=== PATIENT | male | born 1970 | race African-American/Black ===

== ENCOUNTER 2017-03-08 20:45 | Emergency (ER) | payer SELFPAY ==
[~2017-03-08] VITALS: Ht 177.8 cm; Wt 85.5 kg
[2017-03-08] MEDS ORDERED: SODIUM CHLORIDE 0.9% 1,000ML IVBOLUS ONE ×2 (21:00→23:00)
[2017-03-08] MEDS ORDERED: SODIUM CHLORIDE FLUSH 10ML SYR IVF ONE (21:00)
[2017-03-08] MEDS ORDERED: ONDANSETRON 2MG/ML, 2ML IVPush ONE (21:00)
[2017-03-08] MEDS ORDERED: ACETAMINOPHEN 500 MG TABLET PO ONE (21:00)
[2017-03-08] MEDS ORDERED: IBUPROFEN 200 MG TABLET ONE (21:04)
[2017-03-08] MEDS ORDERED: ACETAMINOPHEN 500 MG TABLET ONE (21:05)
[2017-03-08] MEDS ORDERED: ONDANSETRON 2MG/ML, 2ML ONE (21:21)
[2017-03-08 21:30] LABS: HEMATOCRIT 43.2 % (39.2-51.8); HEMOGLOBIN 14.5 g/dL (13.7-18.0); WHITE BLOOD COUNT 6.3 x10^3/uL (3.4-10)
[2017-03-08] MEDS ORDERED: IBUPROFEN 200 MG TABLET PO ONE (21:30)
[2017-03-08] MEDS ORDERED: PLEASE ENTER ALLERGIES MC SCH ×2 (21:30)
[2017-03-08 21:32] LABS: RAPID INFLUENZA A Negative (Negative); RAPID INFLUENZA B Negative (Negative)
[2017-03-08] MEDS ORDERED: HYDR-3240 PO (21:35)
[2017-03-08 21:42] LABS: ASPARTATE AMINO TRANSFERASE 16 U/L (15-37); BLOOD UREA NITROGEN 13 mg/dL (7-18)
[2017-03-08 22:20] VITALS: BP 118/63
== END 2017-03-08 23:58 ==
LOC: ED 21:42
DX: B34.9 Viral infection, unspecified (principal); E86.0 Dehydration; F17.200 Nicotine dependence, unspecified, uncomplicated
CPT/HCPCS: 36415; 71020; 80053; 85025; 87400; 93005; 96361; 96374; 99285; J2405; J7030

== ENCOUNTER 2017-05-09 02:40 | Emergency (ER) | payer MEDICAID, OTHER ==
[~2017-05-09] VITALS: Ht 177.8 cm; Wt 85.5 kg
[~2017-05-09 02:40] MED LIST: HYDR-3240 PO
[2017-05-09 02:43] VITALS: BP 145/93
== END 2017-05-09 03:12 | disposition home or self-care (01) ==
LOC: ED 02:51
DX: K02.9 Dental caries, unspecified (principal)
CPT/HCPCS: 99283

== ENCOUNTER 2017-11-27 00:30 | Emergency (ER) | payer MEDICAID ==
[~2017-11-27] VITALS: Ht 177.8 cm; Wt 87.6 kg
[2017-11-27] MEDS ORDERED: ACETAMINOPHEN 500 MG TABLET ONE (00:55)
[2017-11-27] MEDS ORDERED: SODIUM CHLORIDE 0.9% 1,000ML IVBOLUS ONE (01:00)
[2017-11-27] MEDS ORDERED: ACETAMINOPHEN 500 MG TABLET PO ONE (01:00)
[2017-11-27 01:23] LABS: ALANINE AMINOTRANSFERASE 29 U/L (12-78); ANION GAP 9 mmol/L (5-15); BASOPHILS # (AUTO) 0.01 x10^3/uL (0-0.1); BASOPHILS % (AUTO) 0 % (0-1); CALCIUM 9.1 mg/dL (8.5-10.1); CHLORIDE 102 mmol/L (98-107); CREATININE 1.13 mg/dL (0.7-1.3); EOSINOPHILS # (AUTO) 0.03 x10^3/uL (0-0.4); EOSINOPHILS % (AUTO) 0 % (1-7); LYMPHOCYTES % (AUTO) 13 % (22-44); MD NO; MEAN CORPUSCULAR HEMOGLOBIN 31.7 pg (27.5-34.5); MEAN CORPUSCULAR HGB CONC 34.8 g/dL (33.2-36.2); MEAN PLATELET VOLUME 7.5 fL (7.4-10.4); MONOCYTES # (AUTO) 0.46 x10^3/uL (0.2-0.8); MONOCYTES % (AUTO) 6 % (2-9); NEUTROPHILS # (AUTO) 6.73 x10^3/uL (1.8-6.8); NEUTROPHILS % (AUTO) 81 % (42-75); PLATELET COUNT 231 x10^3/uL (130-400); RED BLOOD COUNT 4.86 x10^6/uL (4.38-5.82); RED CELL DISTRIBUTION WIDTH 13.7 % (9.4-14.8)
[2017-11-27 01:24] LABS: ALBUMIN 3.9 g/dL (3.4-5.0)
[2017-11-27 01:26] LABS: ALKALINE PHOSPHATASE 98 U/L (45-117); BILIRUBIN,TOTAL 0.9 mg/dL (0.2-1.0); TOTAL PROTEIN 7.5 g/dL (6.4-8.2)
[2017-11-27 01:58] VITALS: BP 143/89
== END 2017-11-27 02:30 | disposition home or self-care (01) ==
LOC: ED 01:30
DX: J15.8 Pneumonia due to other specified bacteria (principal); B96.89 Other specified bacterial agents as the cause of diseases classified elsewhere; F17.200 Nicotine dependence, unspecified, uncomplicated
CPT/HCPCS: 36415; 71046; 80053; 85025; 93005; 99285

== ENCOUNTER 2018-01-25 13:24 | Observation (INO) | payer MEDICAID ==
[~2018-01-25] VITALS: Ht 180.3 cm; Wt 90.8 kg
[2018-01-25] MEDS ORDERED: KETOROLAC 30 MG/1 ML ONE (13:44)
[2018-01-25] MEDS ORDERED: KETOROLAC 30 MG/1 ML IVPush ONE (14:00)
[2018-01-25] MEDS ORDERED: OXYcodone/APAP 5/325MG TABLET ONE (14:52)
[2018-01-25] MEDS ORDERED: METHOCARBAMOL 750 MG TABLET ONE (14:52)
[2018-01-25] MEDS ORDERED: METHOCARBAMOL 750 MG TABLET PO ONE (15:00)
[2018-01-25] MEDS ORDERED: OXYcodone/APAP 5/325MG TABLET PO ONE (15:00)
[2018-01-25] MEDS ORDERED: MORPHINE SULFATE 4 MG/ML, 1ML ONE (15:06)
[2018-01-25] MEDS ORDERED: ONDANSETRON 2MG/ML, 2ML ONE (15:06)
[2018-01-25 17:30] LABS: BASOPHILS # (AUTO) 0.05 x10^3/uL (0-0.1); BASOPHILS % (AUTO) 1 % (0-1); EOSINOPHILS # (AUTO) 0.19 x10^3/uL (0-0.4); EOSINOPHILS % (AUTO) 4 % (1-7); LYMPHOCYTES # (AUTO) 2.66 x10^3/uL (1-3.4); LYMPHOCYTES % (AUTO) 49 % (22-44); MD NO; MEAN CORPUSCULAR HEMOGLOBIN 32.2 pg (27.5-34.5); MEAN CORPUSCULAR HGB CONC 34.4 g/dL (33.2-36.2); MEAN CORPUSCULAR VOLUME 93.8 fL (81-97); MEAN PLATELET VOLUME 7.7 fL (7.4-10.4); MONOCYTES # (AUTO) 0.47 x10^3/uL (0.2-0.8); MONOCYTES % (AUTO) 9 % (2-9); NEUTROPHILS # (AUTO) 2.07 x10^3/uL (1.8-6.8); NEUTROPHILS % (AUTO) 38 % (42-75); PLATELET COUNT 238 x10^3/uL (130-400); RED BLOOD COUNT 4.52 x10^6/uL (4.38-5.82); RED CELL DISTRIBUTION WIDTH 14.4 % (9.4-14.8)
[2018-01-25] MEDS ORDERED: POLYETHYLENE GLYCOL 17 GM PACKET PO PRN (17:30)
[2018-01-25] MEDS ORDERED: LABETALOL 5MG/ML, 20ML IVPush PRN (17:30)
[2018-01-25] MEDS ORDERED: ONDANSETRON 2MG/ML, 2ML IVPush PRN (17:30)
[2018-01-25] MEDS ORDERED: ONDANSETRON ODT 4 MG PO PRN (17:30)
[2018-01-25 17:38] LABS: ALBUMIN 3.4 g/dL (3.4-5.0); ANION GAP 7 mmol/L (5-15); CALCIUM 8.3 mg/dL (8.5-10.1); CHLORIDE 107 mmol/L (98-107)
[2018-01-25 17:40] LABS: ALANINE AMINOTRANSFERASE 26 U/L (12-78); ALKALINE PHOSPHATASE 86 U/L (45-117); BILIRUBIN,TOTAL 0.2 mg/dL (0.2-1.0); TOTAL PROTEIN 6.5 g/dL (6.4-8.2)
[2018-01-25] MEDS: SODIUM CHLORIDE 0.9% 1,000 ML IV SCH (18:03)
[2018-01-25 18:11] VITALS: BP 130/86
[2018-01-25] MEDS ORDERED: METHOCARBAMOL 500 MG TABLET PO PRN (19:30)
[2018-01-25] MEDS: HYDROcodone/APAP 10/325 MG TABLET PO PRN (19:50)
[2018-01-25] MEDS: NICOTINE 21 MG/24 HR PATCH.TD24 TD SCH (19:50)
[2018-01-26] MEDS: SODIUM CHLORIDE 0.9% 1,000 ML IV SCH ×3 (00:25→23:03)
[2018-01-26 01:23] VITALS: BP 114/67
[2018-01-26] MEDS: HYDROcodone/APAP 10/325 MG TABLET PO PRN ×3 (01:47→20:21)
[2018-01-26 06:00] LABS: BASOPHILS # (AUTO) 0.05 x10^3/uL (0-0.1); BASOPHILS % (AUTO) 1 % (0-1); EOSINOPHILS # (AUTO) 0.23 x10^3/uL (0-0.4); EOSINOPHILS % (AUTO) 4 % (1-7); LYMPHOCYTES # (AUTO) 2.74 x10^3/uL (1-3.4); LYMPHOCYTES % (AUTO) 45 % (22-44); MD NO; MEAN CORPUSCULAR HEMOGLOBIN 31.8 pg (27.5-34.5); MEAN CORPUSCULAR HGB CONC 34.2 g/dL (33.2-36.2); MEAN CORPUSCULAR VOLUME 92.9 fL (81-97); MEAN PLATELET VOLUME 7.9 fL (7.4-10.4); MONOCYTES # (AUTO) 0.48 x10^3/uL (0.2-0.8); MONOCYTES % (AUTO) 8 % (2-9); NEUTROPHILS # (AUTO) 2.55 x10^3/uL (1.8-6.8); NEUTROPHILS % (AUTO) 42 % (42-75); PLATELET COUNT 221 x10^3/uL (130-400); RED BLOOD COUNT 4.53 x10^6/uL (4.38-5.82); RED CELL DISTRIBUTION WIDTH 14.4 % (9.4-14.8)
[2018-01-26 06:10] LABS: ALBUMIN 3.3 g/dL (3.4-5.0); ANION GAP 6 mmol/L (5-15); CALCIUM 8.4 mg/dL (8.5-10.1); CHLORIDE 109 mmol/L (98-107)
[2018-01-26 06:15] LABS: ALANINE AMINOTRANSFERASE 24 U/L (12-78); ALKALINE PHOSPHATASE 79 U/L (45-117); BILIRUBIN,TOTAL 0.2 mg/dL (0.2-1.0); CREATININE 0.87 mg/dL (0.7-1.3); TOTAL PROTEIN 6.2 g/dL (6.4-8.2)
[2018-01-26 07:09] VITALS: BP 137/76
[2018-01-26] MEDS: SENNA/DOCUSATE TABLET PO SCH (09:00)
[2018-01-26] MEDS ORDERED: MIDAZOLAM 1 MG/ML, 5ML ONE (11:51)
[2018-01-26] MEDS ORDERED: FENTANYL PF 100 MCG/2ML ONE (11:51)
[2018-01-26] MEDS ORDERED: methylPREDNISolone SOD SUCC 125 MG/2 ML IVPush SCH (13:00)
[2018-01-26] MEDS ORDERED: GADOBUTROL 10 MMOL/10 ML PFS ONE (14:00)
[2018-01-26 15:05] VITALS: BP 121/79
[2018-01-26] MEDS ORDERED: MORPHINE SULFATE 4 MG/ML, 1ML IVPush PRN (15:30)
[2018-01-26] MEDS ORDERED: ENOXAPARIN 40 MG/0.4 ML SQ SCH (18:00)
[2018-01-26 18:23] LABS: AMPHETAMINE SCREEN, URINE Negative (Negative); BARBITURATE SCREEN, URINE Negative (Negative); BENZODIAZEPINE SCREEN, URINE Positive (Negative); CANNABINOID SCREEN, URINE Positive (Negative); COCAINE SCREEN, URINE Negative (Negative); METHADONE SCREEN, URINE Negative (Negative); OPIATE SCREEN, URINE Positive (Negative)
[2018-01-26 19:07] VITALS: BP 149/94
[2018-01-26] MEDS: NICOTINE 21 MG/24 HR PATCH.TD24 TD SCH (20:21)
[2018-01-27] MEDS: METHOCARBAMOL 500 MG TABLET PO PRN ×2 (00:22→06:38)
[2018-01-27] MEDS: HYDROcodone/APAP 10/325 MG TABLET PO PRN ×3 (00:22→12:02)
[2018-01-27 00:45] VITALS: BP 147/83
[2018-01-27] MEDS: SODIUM CHLORIDE 0.9% 1,000 ML IV SCH (06:38)
[2018-01-27 06:42] VITALS: BP 150/85
[2018-01-27 07:34] LABS: ALBUMIN 3.7 g/dL (3.4-5.0); ANION GAP 8 mmol/L (5-15); CALCIUM 8.9 mg/dL (8.5-10.1); CHLORIDE 109 mmol/L (98-107)
[2018-01-27 07:37] LABS: ALANINE AMINOTRANSFERASE 27 U/L (12-78); ALKALINE PHOSPHATASE 78 U/L (45-117); BILIRUBIN,TOTAL 0.3 mg/dL (0.2-1.0); CREATININE 0.95 mg/dL (0.7-1.3); TOTAL PROTEIN 7.1 g/dL (6.4-8.2)
[2018-01-27] MEDS: SENNA/DOCUSATE TABLET PO SCH (09:00)
[2018-01-27] MEDS ORDERED: PRED10TA PO (11:47)
[2018-01-27] MEDS ORDERED: METH500T7 PO (11:47)
[2018-01-27 12:24] VITALS: BP 157/81
== END 2018-01-27 13:40 | disposition home or self-care (01) ==
LOC: ED 16:42 → EDIP 16:43 → ED 16:43 → INTOOBSV 16:43 → 3NE 17:26 → DCLOUNGE 01-27 13:30
PROVIDERS: ADMIT Internal Medicine; ATTEND Internal Medicine
DX: M51.24 Other intervertebral disc displacement, thoracic region (principal); G89.21 Chronic pain due to trauma; N50.82 Scrotal pain; N50.3 Cyst of epididymis; F12.10 Cannabis abuse, uncomplicated; F17.210 Nicotine dependence, cigarettes, uncomplicated
CPT/HCPCS: 36415; 72157; 72158; 73610; 73630; 76870; 80053; 80307; 83735; 84100; 85025; 96372; 96374; 97163; 99285; A9585; G0378; G8978; G8979; G8980; J1650; J1885; J2250; J3010; J7030; J7512

== ENCOUNTER 2018-03-24 07:08 | Emergency (ER) | payer MEDICAID, OTHER ==
[~2018-03-24] VITALS: Ht 177.8 cm; Wt 86.0 kg
[~2018-03-24 07:08] MED LIST changes: +METH500T7 PO; +PRED10TA PO
[2018-03-24] MEDS ORDERED: LEVETIRACETAM 500 MG in SODIUM CHLORIDE 0.9% 100 ML IV ONE (07:30)
[2018-03-24] MEDS ORDERED: SODIUM CHLORIDE FLUSH 10ML SYR IVF ONE (07:30)
[2018-03-24 07:53] LABS: BASOPHILS # (AUTO) 0.04 x10^3/uL (0-0.1); BASOPHILS % (AUTO) 1 % (0-1); EOSINOPHILS # (AUTO) 0.14 x10^3/uL (0-0.4); EOSINOPHILS % (AUTO) 3 % (1-7); LYMPHOCYTES # (AUTO) 2.13 x10^3/uL (1-3.4); LYMPHOCYTES % (AUTO) 41 % (22-44); MD NO; MEAN CORPUSCULAR HEMOGLOBIN 31.6 pg (27.5-34.5); MEAN CORPUSCULAR HGB CONC 34.3 g/dL (33.2-36.2); MEAN CORPUSCULAR VOLUME 92.2 fL (81-97); MEAN PLATELET VOLUME 7.6 fL (7.4-10.4); MONOCYTES # (AUTO) 0.51 x10^3/uL (0.2-0.8); MONOCYTES % (AUTO) 10 % (2-9); NEUTROPHILS # (AUTO) 2.37 x10^3/uL (1.8-6.8); NEUTROPHILS % (AUTO) 46 % (42-75); PLATELET COUNT 255 x10^3/uL (130-400); RED BLOOD COUNT 4.83 x10^6/uL (4.38-5.82); RED CELL DISTRIBUTION WIDTH 13.7 % (9.4-14.8)
[2018-03-24 07:58] LABS: ALANINE AMINOTRANSFERASE 31 U/L (12-78); ALBUMIN 3.8 g/dL (3.4-5.0); ANION GAP 6 mmol/L (5-15); CHLORIDE 108 mmol/L (98-107)
[2018-03-24 08:00] LABS: ALKALINE PHOSPHATASE 86 U/L (45-117); BILIRUBIN,TOTAL 0.6 mg/dL (0.2-1.0); CREATININE 1.09 mg/dL (0.7-1.3); TOTAL PROTEIN 7.2 g/dL (6.4-8.2)
[2018-03-24 09:09] VITALS: BP 121/82
== END 2018-03-24 09:30 | disposition home or self-care (01) ==
LOC: ED 08:36
DX: G40.419 Other generalized epilepsy and epileptic syndromes, intractable, without status epilepticus (principal); Z59.0 Homelessness
CPT/HCPCS: 36415; 70450; 80053; 85025; 93005; 96365; 99285; J1953

== ENCOUNTER 2018-03-24 15:18 | Emergency (ER) | payer SELFPAY ==
[~2018-03-24] VITALS: Ht 177.8 cm; Wt 86.0 kg
[2018-03-24 16:16] LABS: BASOPHILS # (AUTO) 0.03 x10^3/uL (0-0.1); BASOPHILS % (AUTO) 1 % (0-1); EOSINOPHILS # (AUTO) 0.16 x10^3/uL (0-0.4); EOSINOPHILS % (AUTO) 3 % (1-7); LYMPHOCYTES # (AUTO) 2.18 x10^3/uL (1-3.4); LYMPHOCYTES % (AUTO) 41 % (22-44); MD NO; MEAN CORPUSCULAR HEMOGLOBIN 32.1 pg (27.5-34.5); MEAN CORPUSCULAR HGB CONC 34.6 g/dL (33.2-36.2); MEAN CORPUSCULAR VOLUME 92.5 fL (81-97); MEAN PLATELET VOLUME 7.4 fL (7.4-10.4); MONOCYTES # (AUTO) 0.44 x10^3/uL (0.2-0.8); MONOCYTES % (AUTO) 8 % (2-9); NEUTROPHILS # (AUTO) 2.57 x10^3/uL (1.8-6.8); NEUTROPHILS % (AUTO) 48 % (42-75); PLATELET COUNT 258 x10^3/uL (130-400); RED BLOOD COUNT 4.67 x10^6/uL (4.38-5.82); RED CELL DISTRIBUTION WIDTH 13.9 % (9.4-14.8)
[2018-03-24 16:28] LABS: ALBUMIN 3.5 g/dL (3.4-5.0); ANION GAP 8 mmol/L (5-15); CALCIUM 8.8 mg/dL (8.5-10.1); CHLORIDE 109 mmol/L (98-107)
[2018-03-24 16:34] LABS: ALANINE AMINOTRANSFERASE 30 U/L (12-78); ALKALINE PHOSPHATASE 81 U/L (45-117); BILIRUBIN,TOTAL 0.6 mg/dL (0.2-1.0); CREATININE 1.05 mg/dL (0.7-1.3); TOTAL PROTEIN 6.8 g/dL (6.4-8.2); TROPONIN I < 0.015 ng/mL (0.000-0.045)
[2018-03-24 17:31] VITALS: BP 127/77
== END 2018-03-24 17:33 | disposition left against medical advice (07) ==
LOC: ED 16:55
DX: R56.9 Unspecified convulsions (principal); R10.11 Right upper quadrant pain; R10.12 Left upper quadrant pain; R10.13 Epigastric pain; R07.89 Other chest pain; Z59.0 Homelessness; F17.200 Nicotine dependence, unspecified, uncomplicated; I25.2 Old myocardial infarction
CPT/HCPCS: 36415; 71046; 80053; 80307; 83690; 83880; 84484; 85025; 93005; 99285

== ENCOUNTER 2018-06-21 18:14 | Emergency (ER) | payer SELFPAY ==
[~2018-06-21] VITALS: Ht 177.8 cm; Wt 90.0 kg
--- NOTE | 2018-06-21 18:15 | NUR ---
BIB [facility] W/ SO W/ CO SZ TODAY. SO REPORTS WITNESSING SZ AND STATES "ITS STILL GOING, IT DIDN'T STOP" "I CAN USUALLY TALK HIM OUT OF THEM- BUT PEOPEL KEEP INTERUPTING". PT ARRIVES A&OX4; SPEECH CLEAR; FACE SYMMETRICAL; +STRENGTH X4. PERRL. PT REPORTS NAUSEA AND DIZZINESS. HX OF SZ, NON-COMPLIANT WITH KEPPRA RX. NO EVIDENCE OF TRAUMA/ORAL TRAUMA/INCONTINENCE NOTED. DESPITE EDUCATION, PT REFUSING IV AT THIS TIME. BP/SPO2/ECG MONITORING IN PLACE. NSR ON MONITOR. SZ PRECAUTIONS IN PLACE.
--- NOTE | 2018-06-21 18:54 | NUR ---
RECEIVED REPORT FROM ZOE JONES TO ASSUME PT. CARE. PT A&O X 4. NADN.
[2018-06-21 18:57] LABS: BASOPHILS # (AUTO) 0.07 x10^3/uL (0-0.1); BASOPHILS % (AUTO) 1 % (0-1); EOSINOPHILS # (AUTO) 0.11 x10^3/uL (0-0.4); EOSINOPHILS % (AUTO) 2 % (1-7); LYMPHOCYTES % (AUTO) 39 % (22-44); MD NO; MEAN CORPUSCULAR HEMOGLOBIN 32.2 pg (27.5-34.5); MEAN CORPUSCULAR HGB CONC 34.4 g/dL (33.2-36.2); MEAN CORPUSCULAR VOLUME 93.7 fL (81-97); MEAN PLATELET VOLUME 7.7 fL (7.4-10.4); MONOCYTES # (AUTO) 0.42 x10^3/uL (0.2-0.8); MONOCYTES % (AUTO) 7 % (2-9); NEUTROPHILS # (AUTO) 2.99 x10^3/uL (1.8-6.8); NEUTROPHILS % (AUTO) 51 % (42-75); PLATELET COUNT 263 x10^3/uL (130-400); RED BLOOD COUNT 4.48 x10^6/uL (4.38-5.82); RED CELL DISTRIBUTION WIDTH 14.8 % (9.4-14.8)
[2018-06-21] MEDS ORDERED: LEVETIRACETAM 500 MG TABLET PO ONE (19:00)
[2018-06-21] MEDS ORDERED: LEVETIRACETAM 500 MG TABLET ONE (19:03)
[2018-06-21 19:10] LABS: ALANINE AMINOTRANSFERASE 20 U/L (12-78); ALBUMIN 3.6 g/dL (3.4-5.0); ANION GAP 1 mmol/L (5-15); CALCIUM 9.1 mg/dL (8.5-10.1); CHLORIDE 107 mmol/L (98-107); CREATININE 0.94 mg/dL (0.7-1.3)
[2018-06-21 19:12] LABS: ALKALINE PHOSPHATASE 84 U/L (45-117); BILIRUBIN,TOTAL 0.3 mg/dL (0.2-1.0); TOTAL PROTEIN 6.8 g/dL (6.4-8.2)
--- NOTE | 2018-06-21 19:12 | NUR ---
PT. RESTING ON GURNEY WITH NADN. ALL MONITORS IN PLACE. CALL LIGHT IN REACH. FAMILY AT FOR SUPPORT. PT. MEDICATED PER AUG. PT. ABLE TO TAKE MEDS WITH WATER WITHOUT DIFFICULTY. PT. EATING CHEETOS AND GUMMY WORMS. ALL SAFETY MEASURES OBSERVED.
[2018-06-21 19:48] VITALS: BP 129/86
--- NOTE | 2018-06-21 19:49 | NUR ---
REQUSTED URINE SAMPLE FROM PT. PT. STATES "I CAN'T GO, I JUST PEEDED". PT. HAS NOT VOIDED IN ED. URINAL PLACED AT BS AND PT. PROVIDED WITH PRIVACY TO ATTEMPT UA.
--- NOTE | 2018-06-21 20:37 | NUR ---
AT 2024 PT. NO LONGER IN ROOM AND ALL MONITORS/GOWN ON [facility]. NO FAMILY/PT. LOCATED ON UNIT. DR. SILVA UPDATED ON THIS.
== END 2018-06-21 20:40 | disposition left against medical advice (07) ==
LOC: ED 19:24
DX: G40.909 Epilepsy, unspecified, not intractable, without status epilepticus (principal); I10 Essential (primary) hypertension; I25.2 Old myocardial infarction; F17.200 Nicotine dependence, unspecified, uncomplicated
CPT/HCPCS: 36415; 80053; 83605; 85025; 93005; 99284

== ENCOUNTER 2018-07-13 18:39 | Emergency (ER) | payer SELFPAY ==
[~2018-07-13] VITALS: Ht 177.8 cm; Wt 89.0 kg
--- NOTE | 2018-07-13 18:50 | NUR ---
Pt BIB [facility] for siezures. Pt was found at the bus stop confused and anxious. Girlfriend stated that pt had a siezure. Pt is supposed to be on Keppra, but cant afford it. A&O X 2, GCS 14. BP 130s/ 80s. hr 90s NS, 97% RA. FS 92. Pt refused IV. Pt A&O X 4 in ED. pt is connected to the monitor. Call light within reach. MD at bedside. Seizure pads in place. Report given to Renee ENRIQUEZ.
[2018-07-13] MEDS ORDERED: LORazepam 1MG TABLET ONE (18:59)
[2018-07-13] MEDS ORDERED: LORazepam 1MG TABLET PO ONE (19:00)
[2018-07-13] MEDS ORDERED: LEVETIRACETAM 500 MG TABLET PO ONE (19:00)
[2018-07-13] MEDS ORDERED: LEVETIRACETAM 500 MG TABLET ONE (19:00)
--- NOTE | 2018-07-13 19:04 | NUR ---
report received from enrique love. pt medicated per aug. resting on christine shortails up x2, call light within reach.
--- NOTE | 2018-07-13 20:23 | NUR ---
pt resting with eyes closed, nadn, equal chest rise/fall, siderails up x2, call light within reach. chart up for recheck
[2018-07-13] MEDS ORDERED: OXYC15TA75 PO (20:42)
[2018-07-13] MEDS ORDERED: LEVE100S6 PO (20:42)
--- NOTE | 2018-07-13 21:23 | NUR ---
PT RESTING WITH EYES CLOSED, NAD, REPOSITIONED SELF ON GURNEY, RESPIRATIONS EVEN AND UNLABORED, SEIZURE PRECAUTIONS MAINTAINED, CALL LIGHT WITHIN REACH.
--- NOTE | 2018-07-13 22:48 | NUR ---
found pt up walking in [place] with unstable gait, assisted pt to w/c and back to room, pt now resting on gurney, monitors in place, will updated erp
[2018-07-14 00:29] VITALS: BP 118/79
--- NOTE | 2018-07-14 00:48 | NUR ---
pt noted with unsteady gait walking in [place]. attempted to call pt's girlfriend, unable to contact her to pick pt up. pt now resting calmly, monitors in place, call light within reach.
== END 2018-07-14 02:16 | disposition home or self-care (01) ==
LOC: ED 22:20
DX: G40.419 Other generalized epilepsy and epileptic syndromes, intractable, without status epilepticus (principal); R89.2 Abnormal level of other drugs, medicaments and biological substances in specimens from other organs, systems and tissues; I10 Essential (primary) hypertension; I25.2 Old myocardial infarction
CPT/HCPCS: 93005; 99283

== ENCOUNTER 2018-08-02 23:19 | Emergency (ER) | payer MEDICAID, OTHER ==
[~2018-08-02 23:19] MED LIST changes: +LEVE100S6 PO; +OXYC15TA75 PO
[2018-08-02 23:21] VITALS: BP 118/85
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
[2018-08-02] MEDS ORDERED: KETOROLAC 30 MG/1 ML ONE (23:38)
[2018-08-02] MEDS ORDERED: LEVETIRACETAM 500 MG TABLET ONE (23:38)
[2018-08-03] MEDS ORDERED: KETOROLAC 30 MG/1 ML IM ONE
[2018-08-03] MEDS ORDERED: LEVETIRACETAM 500 MG TABLET PO SCH
== END 2018-08-03 01:41 | disposition home or self-care (01) ==
LOC: ED 23:58
DX: S50.02XA Contusion of left elbow, initial encounter (principal); S50.12XA Contusion of left forearm, initial encounter; S20.212A Contusion of left front wall of thorax, initial encounter; G40.909 Epilepsy, unspecified, not intractable, without status epilepticus; I10 Essential (primary) hypertension; I25.2 Old myocardial infarction; W19.XXXA Unspecified fall, initial encounter; Y93.89 Activity, other specified; Y92.89 Other specified places as the place of occurrence of the external cause; Y99.8 Other external cause status
CPT/HCPCS: 99283

== ENCOUNTER 2018-11-28 14:02 | Emergency (ER) | payer MEDICAID ==
[~2018-11-28] VITALS: Ht 177.8 cm; Wt 80.5 kg
[2018-11-28] MEDS ORDERED: LIDOCAINE 1%, 10ML INFIL ONE (14:30)
[2018-11-28] MEDS ORDERED: DIPH,PERTUSS(ACELL),TET VAC/PF 0.5 ML IM-VACC ONE ×2 (14:30→15:17)
--- NOTE | 2018-11-28 14:51 | NUR ---
PT TO ROOM FROM LOBBY AT THIS TIME.
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
--- NOTE | 2018-11-28 15:15 | NUR ---
IV started and seizure pads in place.
[2018-11-28] MEDS ORDERED: LEVETIRACETAM 500 MG TABLET PO ONE (15:30)
[2018-11-28 15:32] LABS: ALANINE AMINOTRANSFERASE 37 U/L (12-78); ANION GAP 7 mmol/L (5-15); CALCIUM 9.1 mg/dL (8.5-10.1); CHLORIDE 107 mmol/L (98-107); CREATININE 1.19 mg/dL (0.7-1.3)
[2018-11-28 15:45] LABS: ALKALINE PHOSPHATASE 83 U/L (45-117); BASOPHILS # (AUTO) 0.03 x10^3/uL (0-0.1); BASOPHILS % (AUTO) 1 % (0-1); BILIRUBIN,TOTAL 0.5 mg/dL (0.2-1.0); EOSINOPHILS # (AUTO) 0.06 x10^3/uL (0-0.4); EOSINOPHILS % (AUTO) 1 % (1-7); LYMPHOCYTES % (AUTO) 21 % (22-44); MD SCAN; MEAN CORPUSCULAR HEMOGLOBIN 31.2 pg (27.5-34.5); MEAN CORPUSCULAR HGB CONC 33.5 g/dL (33.2-36.2); MEAN CORPUSCULAR VOLUME 93.1 fL (81-97); MEAN PLATELET VOLUME 6.8 fL (7.4-10.4); MONOCYTES # (AUTO) 0.62 x10^3/uL (0.2-0.8); MONOCYTES % (AUTO) 9 % (2-9); NEUTROPHILS # (AUTO) 4.96 x10^3/uL (1.8-6.8); NEUTROPHILS % (AUTO) 69 % (42-75); PLATELET COUNT 276 x10^3/uL (130-400); RED BLOOD COUNT 4.46 x10^6/uL (4.38-5.82); RED CELL DISTRIBUTION WIDTH 13.7 % (9.4-14.8); TOTAL PROTEIN 7.2 g/dL (6.4-8.2)
[2018-11-28] MEDS ORDERED: LIDOCAINE-MPF 1%, 5ML ONE (17:12)
--- NOTE | 2018-11-28 17:15 | NUR ---
WING Velasco performing lac repair.
[2018-11-28] MEDS ORDERED: LEVETIRACETAM 500 MG TABLET ONE (17:34)
--- NOTE | 2018-11-28 18:12 | NUR ---
Lac dressed wth bacitracin, adaptic and kerlex.
--- NOTE | 2018-11-28 18:12 | NUR ---
Ambulatory with a steady gait.
[2018-11-28 18:30] VITALS: BP 134/89
--- NOTE | 2018-11-28 18:46 | NUR ---
Patient/Caregiver given discharge instructions and they have confirmed that they understand the instructions. Patient ambulatory with steady gait.
== END 2018-11-28 18:47 | disposition home or self-care (01) ==
LOC: ED 18:40
DX: S61.412A Laceration without foreign body of left hand, initial encounter (principal); S50.12XA Contusion of left forearm, initial encounter; G40.409 Other generalized epilepsy and epileptic syndromes, not intractable, without status epilepticus; Z91.14 Patient's other noncompliance with medication regimen; I10 Essential (primary) hypertension; I25.2 Old myocardial infarction; V19.9XXA Pedal cyclist (driver) (passenger) injured in unspecified traffic accident, initial encounter; Y93.89 Activity, other specified; Y92.89 Other specified places as the place of occurrence of the external cause; Y99.8 Other external cause status
CPT/HCPCS: 12044; 36415; 70450; 71046; 72125; 80053; 85025; 90471; 90715; 93005; 99284